=== PATIENT | male | born 1950 | race Caucasian/White ===

== ENCOUNTER 2018-12-19 07:06 | Day surgery (SDC) | payer BC ==
[~2018-12-19] VITALS: Ht 182.9 cm; Wt 87.0 kg
[~2018-12-19 07:06] MED LIST: FISH1000 PO; MULVITMIND PO; ONDA4ODT MM
[2018-12-19] MEDS ORDERED: VITAMIN D22000 UNIT PO (07:52)
== END 2018-12-19 09:19 | disposition home or self-care (01) ==
LOC: ORSCSDS 07:06
PROVIDERS: Surgery
PROC: 0DBL8ZX Excision of Transverse Colon, Via Natural or Artificial Opening Endoscopic, Diagnostic (ICD-10-PCS; principal; 2018-12-19 08:30)
DX: Z12.11 Encounter for screening for malignant neoplasm of colon (principal); Z86.010 Personal history of colon polyps; D12.3 Benign neoplasm of transverse colon
CPT/HCPCS: 88305; J0330; J0461; J2405; J2704; J7120

== ENCOUNTER → 2021-02-07 | Outpatient (CLI) | payer BC ==
[~2021-02-07] MED LIST changes: +VITAMIN D22000 UNIT PO
== END | disposition home or self-care (01) ==
LOC: LAB 13:20 → LAB SHORT 13:20
DX: D48.5 Neoplasm of uncertain behavior of skin (principal)
CPT/HCPCS: 88305

== ENCOUNTER → 2021-03-14 | Outpatient (CLI) | payer BC | LOC: LAB SHORT 14:45 → LAB 14:45 | DX: C44.41 Basal cell carcinoma of skin of scalp and neck (principal); Z88.6 Allergy status to analgesic agent | CPT/HCPCS: 88305 ==

== ENCOUNTER 2025-02-17 07:13 | Day surgery (SDC) | payer MEDICARE ==
[2025-02-17] VITALS (19 sets, daily range): BP systolic 109–170; BP diastolic 72–116
[~2025-02-17] VITALS: Ht 180.3 cm; Wt 93.2 kg
--- NOTE | 2025-02-17 07:43 | NUR ---
Patient confirms NPO status and agrees with scheduled surgery. Lungs clear T/O to Auscultation.Patient states colon prep results clear. Patient States Post-Procedure ride home has been arranged.
--- NOTE | 2025-02-17 07:59 | NUR ---
02/17/25 [id number] Taylor Bowling CONFIRMED AND REVIEWED H&P, MEDCICATIONS, ALLERGIES, MEDICAL HISTORY, RESPIRATORY HISTORY, VITAL SIGNS, 3-LEAD EKG, CONSENTS, AND PHYSICIAN ORDERS. PATIENT CONFIRMS NPO STATUS AND AGREES WITH SCHEDULED PROCEDURE. MONITOR INTACT WITH CONTINUOUS PULSE OXIMETRY, CAPNOGRAPHY, 3-LEAD EKG, INTERMITTENT BP. SUPPLEMENTAL O2 TO BE TITRATED THROUGHOUT PROCEDURE TO MAINTAIN O2 SATURATION ABOVE 90%. PATIENT DETERMINED TO BE ASA APPROPRIATE FOR PROPOFOL SEDATION PRIOR TO START OF PROCEDURE BY DR. ESCOBEDO.
--- NOTE | 2025-02-17 09:02 | NUR ---
Discharge instructions reviewed with patient. Patient verbalizes understanding. Copy given to patient to take home. Patient States Post-Procedure ride home has been arranged. Discharged via wheelchair to private car for ride home.
== END 2025-02-17 08:58 | disposition home or self-care (01) ==
LOC: ORSCMMR 07:13 → ORD 08:00 → ORSCMMR 08:58
PROVIDERS: Surgery
PROC: 0DBL8ZX Excision of Transverse Colon, Via Natural or Artificial Opening Endoscopic, Diagnostic (ICD-10-PCS; principal; 2025-02-17 08:00)
DX: Z12.11 Encounter for screening for malignant neoplasm of colon (principal); D12.3 Benign neoplasm of transverse colon; Z86.0101 Personal history of adenomatous and serrated colon polyps
CPT/HCPCS: 88305; J2704; J7120